=== PATIENT | female | born 1965 ===

== ENCOUNTER 2018-06-24 23:28 | Emergency (ER) | payer OTHER ==
--- NOTE | 2018-06-25 02:05 | ED ---
Head Injury - HPI Summary HPI Summary: Patient admitting to positive [facility] complains of left lower extremity pain after fall down 15 stairs. Fall was witnessed by son who states patient did hit her head but did not lose consciousness, and was ambulatory afterwards without deficit in behavior or functioning. Patient herself complains only of left lower extremity pain. Denies RODRIGUEZ, vision change, N/V, AMS, amnesia, any other pain or injury. Family states patient intoxicated but otherwise at baseline behavior. Patient states she consumes 2-3 bottles of wine daily. Medical history is none. - History Of Current Complaint Chief Complaint: EDExtremityLower Stated Complaint: LEFT FOOT INJURY Time Seen by Provider: 06/25/18 00:06 Hx Obtained From: Patient Mechanism Of Injury: Fall From A Standing Position Onset/Duration: Started Hours Ago Onset of Pain: Immediate Severity Currently: None Severity Initially: Moderate Pain Intensity: 0 Pain Scale Used: 0-10 Numeric Location of Head Injury: Other: Associated Signs And Symptoms: Negative - Allergies/Home Medications Allergies/Adverse Reactions: Allergies Allergy/AdvReac Type Severity Reaction Status Date / Time No Known Allergies Allergy Verified 06/24/18 23:38 Home Medications: Home Medications NK [No Home Medications Reported] 06/25/18 [History Confirmed 06/25/18] PMH/Surg Hx/FS Hx/Imm Hx Endocrine/Hematology History: Denies: Hx Anticoagulant Therapy Cardiovascular History: Denies: Hx Cardiac Arrest History: Denies: Hx Dialysis Neurological History: Denies: Hx CVA Infectious Disease History: No Infectious Disease History: Denies: Traveled Outside the [place] in Last 30 Days - Family History Known Family History: Positive: Non-Contributory - Social History Lives: With Family Alcohol Use: Daily Alcohol Amount: wine 3 bottles/day Substance Use Type: Reports: None Smoking Status (MU): Never Smoked Tobacco Review of Systems Constitutional: Negative Eyes: Negative ENT: Negative Cardiovascular: Negative Respiratory: Negative Gastrointestinal: Negative Genitourinary: Negative Musculoskeletal: Other Skin: Negative Neurological: Negative Psychological: Normal All Other Systems Reviewed And Are Negative: Yes Physical Exam - Summary Physical Exam Summary: Patient has hematoma to right side of head. Large hematoma to lateral ken. PMS intact distally. Calf soft nontender. Neuro exam normal. No pain with palpation of face, neck, back, abdomen, chest wall. Patient moves bilateral upper and lower extremities without indication of pain. No oral trauma noted. Patient ambulates at baseline. Patient appropriate in behavior and coherent in speech but she does appear to be intoxicated. Triage Information Reviewed: Yes Vital Signs On Initial Exam: Initial Vitals Temp Pulse Resp BP Pulse Ox 98.1 F 100 16 135/87 95 06/24/18 23:35 06/24/18 23:35 06/24/18 23:35 06/24/18 23:35 06/24/18 23:35 Vital Signs Reviewed: Yes Appearance: Positive: Well-Appearing Skin: Positive: Warm Head/Face: Positive: Normal Head/Face Inspection Eyes: Positive: Normal ENT: Positive: Normal ENT inspection Dental: Negative: Dental Fracture @, Bleeding Neck: Positive: Supple Respiratory/Lung Sounds: Positive: Clear to Auscultation Cardiovascular: Positive: Normal Abdomen Description: Positive: Nontender Musculoskeletal: Positive: Normal Neurological: Positive: Normal Psychiatric: Positive: Normal AVPU Assessment: Alert - Konrad Coma Scale Best Eye Response: 4 - Spontaneous Best Motor Response: 6 - Obeys Commands Best Verbal Response: 5 - Oriented Coma Scale Total: 15 Diagnostics - Vital Signs Vital Signs Temp Pulse Resp BP Pulse Ox 06/25/18 01:00 97 92 06/25/18 00:53 96 107/85 98 06/25/18 00:23 96 121/77 92 06/25/18 00:03 96 93 06/25/18 00:00 91 91 06/24/18 23:54 92 91 06/24/18 23:53 95 142/78 91 06/24/18 23:35 98.1 F 100 16 135/87 95 - Laboratory Lab Statement: Any lab studies that have been ordered have been reviewed, and results considered in the medical decision making process. Head Injury Course/Dx Course Of Treatment: Patient admitting to positive [facility] complains of left lower extremity pain after fall down 15 stairs. Fall was witnessed by son who states patient did hit her head but did not lose consciousness, and was ambulatory afterwards without deficit in behavior or functioning. Patient herself complains only of left lower extremity pain. Denies RODRIGUEZ, vision change, N/V, AMS , amnesia, any other pain or injury. Family states patient intoxicated but otherwise at baseline behavior. Patient states she consumes 2-3 bottles of wine daily. Medical history is none. Physical exam:Patient has hematoma to right side of head. Large hematoma to lateral ken. PMS intact distally. Calf soft nontender. Neuro exam normal. No pain with palpation of face, neck, back, abdomen, chest wall. Patient moves bilateral upper and lower extremities without indication of pain. No oral trauma noted. Patient ambulates at baseline. Patient appropriate in behavior and coherent in speech but she does appear to be intoxicated. CT ordered due to fall down 15 stairs with head injury and positive EtOH making assessment less precise. CT brain negative for acute process. X-ray left lower extremity negative. Patient ambulatory. Coherent and appropriate behavior. Advised ibuprofen, ice for left lower extremity pain. - Diagnoses Provider Diagnoses: Fall, Head injury, Lower extremity pain Discharge - Sign-Out/Discharge Documenting (check all that apply): Patient Departure - Discharge Plan Condition: Stable Disposition: HOME Patient Education Materials: Head Injury (ED), Contusion in Adults (ED) Referrals: No Primary Care Phys,NOPCP [Primary Care Provider] - [facility] [Outside] Additional Instructions: Ibuprofen, ice, rest and elevation for left leg pain. Follow-up with primary care. Return to the ED for any new or worsening symptoms - Billing Disposition and Condition Condition: STABLE Disposition: Home
[2018-06-25 02:30] VITALS: BP 115/82
== END 2018-06-25 02:32 | disposition home or self-care (01) ==
LOC: ED 23:28
DX: S09.90XA Unspecified injury of head, initial encounter (principal); S80.12XA Contusion of left lower leg, initial encounter; W10.9XXA Fall (on) (from) unspecified stairs and steps, initial encounter; Y92.9 Unspecified place or not applicable
CPT/HCPCS: 70450; 99283